=== PATIENT | female | born 1985 | race Caucasian/White ===

== ENCOUNTER 2021-08-19 16:08 | Emergency (ER) | payer MEDICAID ==
[~2021-08-19] VITALS: Ht 160 cm; Wt 90.9 kg
[~2021-08-19 16:08] MED LIST: PREN1TAB48 PO
[2021-08-19 16:11] VITALS: BP 149/99
[2021-08-19] MEDS ORDERED: iohexol 300mg/ml 100ml inj. ONE (16:24)
== END 2021-08-19 16:44 | disposition left against medical advice (07) ==
LOC: ER 16:09 → EEVIPCON 16:09 → ER 16:44
DX: T71.9XXA Asphyxiation due to unspecified cause, initial encounter (principal); M54.2 Cervicalgia; Y04.8XXA Assault by other bodily force, initial encounter; Y93.89 Activity, other specified; Y92.89 Other specified places as the place of occurrence of the external cause; Y99.8 Other external cause status; Z79.899 Other long term (current) drug therapy
CPT/HCPCS: 99281; 99283; J3490; Q9967

== ENCOUNTER 2023-05-14 15:45 | Emergency (ER) | payer MEDICAID | END 2023-05-14 16:55 | disposition left against medical advice (07) | LOC: ER 15:46 | DX: J11.1 Influenza due to unidentified influenza virus with other respiratory manifestations (principal); Z53.21 Procedure and treatment not carried out due to patient leaving prior to being seen by health care provider ==